=== PATIENT | female | born 1965 | race Caucasian/White ===

== ENCOUNTER 2018-07-01 21:02 | Emergency (ER) | payer MEDICAID ==
[~2018-07-01] VITALS: Wt 73.5 kg
[2018-07-01] MEDS ORDERED: AMOX1TAB10 PO (23:13)
--- NOTE | 2018-07-01 23:18 | ERD ---
ER Documentation Chief Complaint Chief Complaint SINGLE PUNCTURE WOUND FROM DOG BITE, L FOREARM HPI 52-year-old female presents with complaint of dog bite to the left arm and neck. States that this happened yesterday. States that it was her neighbor's dog and the dog is up-to-date on his vaccines. Denies any chance of foreign body such as tooth in the wound. Denies any fevers, chills, bleeding, discharge coming from bite site. ROS All systems reviewed and are negative except as per history of present illness. Medications Home Meds Active Scripts Amoxicillin/Potassium Clav (Amox-Clav 875-125 mg Tablet) 875-125 mg Tab, 1 TAB PO BID for 10 Days, #20 TAB Prov:ANNALEE ROMERO 07/01/18 Allergies Allergies: Coded Allergies: No Known Allergy (Unverified , 07/01/18) PMhx/Soc Medical and Surgical Hx: pt denies Medical Hx, pt denies Surgical Hx Hx Alcohol Use: No Hx Substance Use: No Hx Tobacco Use: No Smoking Status: Never smoker FmHx Family History: No diabetes, No coronary disease, No other Physical Exam Vitals Vital Signs Date Temp Pulse Resp B/P (MAP) Pulse Ox O2 O2 Flow FiO2 Time Delivery Rate 07/01/18 97.8 90 18 193/89 98 21:05 (123) Physical Exam Const: No acute distress Head: Atraumatic Eyes: Normal Conjunctiva ENT: Normal External Ears, Nose and Mouth. Neck: Full range of motion. No meningismus. Resp: Clear to auscultation bilaterally Cardio: Regular rate and rhythm, no murmurs Abd: Soft, non tender, non distended. Normal bowel sounds Skin: 1 mm abrasion noted to the left forearm and left side of neck with no bleeding, erythema, edema, or discharge noted. No underlying foreign bodies noted. Back: No midline or flank tenderness Ext: No cyanosis, or edema Neur: Awake and alert Psych: Normal Mood and Affect Procedures/MDM MDM: Patient knew firsthand that the dog is vaccinated and there is little concern for rabies in [facility] therefore I have low suspicion for rabies. I also low suspicion for acute space infection, bacteremia, or any other emergent condition. Patient given Rx for Augmentin for 10 days and given 1 dose of Augmentin in the ER. Patient discharged with strict ER precautions. Patient advised to follow up with PMD. All questions answered at discharge. Departure Diagnosis: Primary Impression: Bite by animal Condition: Stable Patient Instructions: Animal Bite, General Referrals: [facility] YOU HAVE RECEIVED A MEDICAL SCREENING EXAM AND THE RESULTS INDICATE THAT YOU DO NOT HAVE A CONDITION THAT REQUIRES URGENT TREATMENT IN THE EMERGENCY DEPARTMENT. FURTHER EVALUATION AND TREATMENT OF YOUR CONDITION CAN WAIT UNTIL YOU ARE SEEN IN YOUR DOCTORS OFFICE WITHIN THE NEXT 1-2 DAYS. IT IS YOUR RESPONSIBILITY TO MAKE AN APPOINTMENT FOR FOLOW-UP CARE. IF YOU HAVE A PRIMARY DOCTOR --you should call your primary doctor and schedule an appointment IF YOU DO NOT HAVE A PRIMARY DOCTOR YOU CAN CALL OUR PHYSICIAN REFERRAL HOTLINE AT IF YOU CAN NOT AFFORD TO SEE A PHYSICIAN YOU CAN CHOSE FROM THE FOLLOWING [facility] [id number] [facility] [address] [facility] [place] [address] [facility] [address] [facility] [address] [facility] [address] [facility]. [address] Additional Instructions: FOLLOW UP WITH YOUR PRIMARY CARE PHYSICIAN TOMORROW.Return to this facility if you are not improving as expected. ANNALEE ROMERO July 01, 2018 23:18
[2018-07-01] MEDS ORDERED: AMOXICILLIN/CLAV 875 MG TAB PO ONE (23:30)
[2018-07-01 23:42] VITALS: BP 135/75; PULSE 70; RESP 18
== END 2018-07-01 23:45 | disposition home or self-care (01) ==
LOC: FTE 21:02
DX: S51.852A Open bite of left forearm, initial encounter (principal); S11.95XA Open bite of unspecified part of neck, initial encounter; W54.0XXA Bitten by dog, initial encounter; Y92.9 Unspecified place or not applicable
CPT/HCPCS: Z7502; Z7610; 99283